=== PATIENT | female | born 2005 | race Caucasian/White ===

== ENCOUNTER 2023-07-15 11:08 | Outpatient (AMB) | payer OTHER, SELFPAY ==
--- NOTE | 2023-07-15 11:27 | AM.OFFWIN_ITS ---
Intake Vital Signs 07/15/23 11:29 Height 5 ft 6 in Weight 191 lb BMI 30.8 BP 120/80 Blood Pressure Location Rt brachial Position Sitting Pulse 85 Pulse Source Pulse Oximeter Pulse Oximetry (%) 99 Oxygen Delivery Method Room Air Intake Visit Reasons: [employer]/left wrist inj Intake Note: Patient here because she was at [facility] while jumping on a trampoline and had bungy cords attached to her waist, she states she had a bracelet and bungy cords got caught into bracelet and pulled her whole wirst back, she states it is very painful, finger tips are cold, swelling and pinky is tingling. Patient Tobacco Use Status: Current someday Tobacco user Allergies No Known Allergies Allergy (Verified 07/15/23 11:56) Medication List - Last Reconciled 07/15/23 by Elton Sanabria MD No Known Home Meds Do you need a note to return to daycare/school/sports/work: Yes HPI [employer]/left wrist inj HPI Details 17-year-old female presents to the office for a sick visit. Patient is reporting pain in the left wrist after falling on the trampoline yesterday. PFSH Social History Patient Tobacco Use Status: Current someday Tobacco user Physical Exam Vital Signs: Last Vital Signs Pulse 85 07/15/23 11:29 BP 120/80 07/15/23 11:29 Pulse Ox 99 07/15/23 11:29 Oxygen Delivery Method Room Air 07/15/23 11:29 BMI result Body Mass Index 30.8 Extrem Other: Wrist: Left: Discomfort over the dorsum of the wrist. Pain on flexion or extension. Assessment & Plan Assessment & Plan (1) Sprain of left wrist: Code(s): S63.502A - Unspecified sprain of left wrist, initial encounter Plan: No fractures seen. Toñito wrap provided. X-ray images personally reviewed by me. Orders: Orders XR wrist LT min 3V Today S63.502A - Unspecified sprain of left wrist, initial encounter Coding Level of Care Code Est Pt Level 4 (67463) Diagnoses Sprain of left wrist S63.502A
[2023-07-15 11:29] VITALS: BP 120/80; PULSE 85; O2SAT 99; BMI 30.8
== END 2023-07-15 12:14 | disposition home or self-care (01) ==
PROVIDERS: Visit Provider Internal Medicine
DX: S63.502A Unspecified sprain of left wrist, initial encounter (principal)
CPT/HCPCS: 99214

== ENCOUNTER 2023-07-15 11:52 | Outpatient (REF) | payer OTHER, SELFPAY ==
--- NOTE | ~2023-07-15 | XR_ITS ---
EXAMINATION: XR WRIST, LEFT CLINICAL INFORMATION: Left wrist pain. COMPARISON: None available. TECHNIQUE: PA, lateral, scaphoid and oblique views of the left wrist. FINDINGS: The bones and soft tissues are normal. No fracture. Alignment is anatomic with normal joint spaces. No erosions or abnormal soft tissue calcifications. XR/XR wrist LT min 3V IMPRESSION: No acute cardiopulmonary process.
== END 2023-07-15 11:53 | disposition home or self-care (01) ==
LOC: HO.HMGCX 11:52
PROVIDERS: Visit Provider Internal Medicine
DX: S63.502A Unspecified sprain of left wrist, initial encounter (principal)
CPT/HCPCS: 73110